=== PATIENT | male | born 1985 | race African-American/Black ===

== ENCOUNTER 2019-02-23 06:07 | Day surgery (SDC) | payer OTHER ==
[2019-02-23] VITALS (9 sets, daily range): BP systolic 91–121; BP diastolic 41–72
[~2019-02-23] VITALS: Ht 195.6 cm; Wt 102.1 kg
[~2019-02-23 06:07] MED LIST: ceFAZolin sod 1gm in D5W 55ml IVPB ONE; celeBREX 200mg Cap **SURGERY PATIENTS ONLY ORAL ONE; oxyCONTIN 20mg tab ORAL ONE
[2019-02-23] MEDS ORDERED: FINASTERIDE1 MG PO (07:37)
--- NOTE | 2019-02-23 07:48 | Pre-Procedure Note/Attestation ---
Pre-Procedure Note/Attestation Complete Prior to Procedure Planned Procedure: left Procedure Narrative: knee artnrscopic menisectomy Indications for Procedure Pre-Operative Diagnosis: left knee meniscus tear Attestation I attest that I discussed the nature of the procedure; its benefits; risks and complications; and alternatives (and the risks and benefits of such alternatives ), prior to the procedure, with the patient (or the patient's legal enrollment eligibility representative). I attest that, if there was a reasonable possibility of needing a blood transfusion, the patient (or the patient's legal enrollment eligibility representative) was given the [facility] standardized written summary, pursuant to the [place] Blood Safety Act ([place] Health and Safety Code # 1645, as amended). I attest that I re-evaluated the patient just prior to the surgery and that there has been no change in the patient's H&P, except as documented below: Ayden Judd MD Feb 23, 2019 07:48
--- NOTE | 2019-02-23 07:49 | Operative Note - PDOC ---
Operative Note Operative Note Pre-op Diagnosis: left knee meniscus tear Procedure: see op report Post-op Diagnosis: same as pre-op plus Operative Findings: consistent w/pre-op dx studies Anesthesia: MAC Specimen: none Complications: none Condition: stable Estimated Blood Loss: none Implant(s) used?: No Ayden Judd MD Feb 23, 2019 07:49
[2019-02-23] MEDS ORDERED: HYDROmorphone 1mg/ml Carpuject SUBQ PRN (08:00)
[2019-02-23] MEDS ORDERED: HYDROcodone/Acetamin 5/325 tab ORAL PRN (08:00)
[2019-02-23] MEDS ORDERED: D5 1/2NS 1,000 ML IV SCH (08:00)
[2019-02-23] MEDS ORDERED: Tylenol #3 tab (300mg/30mg) ORAL PRN (08:00)
[2019-02-23] MEDS ORDERED: Midazolam 2mg/2ml Inj ONE (08:27)
[2019-02-23] MEDS ORDERED: fentaNYL 100 mcg/2 mL IV ONE (08:27)
[2019-02-23] MEDS ORDERED: Lidocaine 1% MPF 10mg/ml 5ml ONE (08:28)
[2019-02-23] MEDS ORDERED: Ketorolac 30mg Inj ONE ×2 (08:28→08:53)
[2019-02-23] MEDS ORDERED: Propofol 200mg/20ml IV ONE (08:28)
[2019-02-23] MEDS ORDERED: ePHEDrine 50mg/ml Inj ONE (08:38)
[2019-02-23] MEDS ORDERED: Sodium Chloride 10ml vial INJ ONE (08:38)
[2019-02-23] MEDS ORDERED: Bupivacaine 0.25% Inj 30ml INJ ONE (08:53)
[2019-02-23] MEDS ORDERED: Kenalog-40 1ml Vial ONE (08:53)
[2019-02-23] MEDS ORDERED: Duramorph PF 5mg/10ml amp ONE (08:53)
[2019-02-23] MEDS ORDERED: Lidocaine 1% 10mg/ml/Epi 0.005mg/ml 30ml vial INJ ONE (08:54)
[2019-02-23] MEDS ORDERED: Duramorph PF 5mg/10ml amp IV ONE (09:31)
[2019-02-23] MEDS ORDERED: LR 1000ml 1,000 ML IVLG SCH (09:50)
--- NOTE | 2019-02-23 09:50 | Anethesia Preoperative Eval ---
Anesthesia Pre-op PMH/ROS General Date of Evaluation: Feb 23, 2019 Time of Evaluation: 08:59 Anesthesiologist: Brea ASA Score: ASA 2 Mallampati Score Class I : Soft palate, uvula, fauces, pillars visible Class II: Soft palate, uvula, fauces visible Class III: Soft palate, base of uvula visible Class IV: Only hard plate visible Mallampati Classification: Class II Surgeon: Dutch Diagnosis: R knee pain Surgical Procedure: R knee scope Anesthesia History: none Family History: no anesthesia problems Allergies: Coded Allergies: No Known Allergies (Unverified , 02/22/19) Medications: see eMAR Patient NPO?: Yes Past Medical History Cardiovascular: Denies: HTN, CAD, NC, valve dz, arrhythmia, other Pulmonary: Denies: asthma, COPD, REJI, other Gastrointestinal/Genitourinary: Reports: GERD - mild; Denies: CRI, ESRD, other Neurologic/Psychiatric: Denies: dementia, CVA, depression/anxiety, TIA, other Endocrine: Denies: DM, hypothyroidism, steroids, other HEENT: Denies: cataract (L), cataract (R), glaucoma, TYONEK (L), TYONEK (R), other Hematology/Immune: Denies: anemia, DVT, bleeding disorder, other Musculoskeletal/Integumentary: Denies: OA, RA, DJD, DDD, edema, other PMH Narrative: as above PSxH Narrative: R knee ACL repair Anesthesia Pre-op Phys. Exam Physician Exam Last Vital Signs Date Time Temp Pulse Resp B/P (MAP) Pulse Ox O2 Delivery O2 Flow Rate FiO2 02/23/19 07:34 97.2 60 20 121/62 100 Room Air Constitutional: NAD Neurologic: CN 2-12 intact Cardiovascular: RRR, no M/R/G Respiratory: CTA Gastrointestinal: S/NT/ND Airway Exam Mallampati Score: Class II MO: full Neck: flexible ROM: full Teeth: intact Dentures: no upper, no lower Anesthesia Pre-op A/P Labs see chart Studies Pre-op Studies: EKG - NSR Risk Assessment & Plan Assessment: ASA 2 Plan: GA with LMA Pre-Antibiotics Drug: Ancef 2gr. Given Within 1 Hr of Incision: Yes Time Given: 09:48 Jarod Guidry MD Feb 23, 2019 09:50
[2019-02-23] MEDS ORDERED: Ketorolac 30mg Inj IV PRN (10:00)
[2019-02-23] MEDS ORDERED: DiphenhydrAMINE 50mg/ml Inj IVP PRN (10:00)
[2019-02-23] MEDS ORDERED: Meperidine 50mg/ml Inj(FOR RIGORS ONLY) IV PRN (10:00)
[2019-02-23] MEDS ORDERED: NS Irrig 1000ml ONE (10:02)
[2019-02-23] MEDS ORDERED: LR 1000ml ONE (10:02)
--- NOTE | 2019-02-23 10:37 | Immediate Post-Op Evaluation ---
Immediate Post-Op Evalulation Immediate Post-Op Evalulation Procedure: R knee arthroscopy meniscectomy Date of Evaluation: Feb 23, 2019 Time of Evaluation: 10:36 IV Fluids: 700 Blood Products: none Estimated Blood Loss: mion Urinary Output: none Blood Pressure Systolic: 108 Blood Pressure Diastolic: 56 Pulse Rate: 72 Respiratory Rate: 20 O2 Sat by Pulse Oximetry: 99 Temperature (Fahrenheit): 97.6 Pain Score (1-10): 1 Nausea: No Vomiting: No Complications none Patient Status: awake, patent, none Hydration Status: adequate Jarod Guidry MD Feb 23, 2019 10:37
--- NOTE | 2019-02-23 13:09 | 48 Hour Post Anesthesia Eval ---
Post Anesthesia Evaluation Procedure: R knee arthroscopy meniscectomy Date of Evaluation: Feb 23, 2019 Time of Evaluation: 13:08 Blood Pressure Systolic: 116 0: 72 Pulse Rate: 68 Respiratory Rate: 20 Temperature (Fahrenheit): 97.6 O2 Sat by Pulse Oximetry: 98 Airway: patent Nausea: No Vomiting: No Pain Intensity: 2 Hydration Status: adequate Cardiopulmonary Status: stable Mental Status/LOC: patient returned to baseline Follow-up Care/Observations: n/a Post-Anesthesia Complications: none Follow-up care needed: ready to discharge Jarod Guidry MD Feb 23, 2019 13:09
--- NOTE | 2019-02-23 15:45 | Operative Note - Dictated ---
DATE OF OPERATION: 02/23/2019 PREOPERATIVE DIAGNOSES: 1. Status post right knee ACL reconstruction. 2. Right knee acute MCL sprain, PCL sprain with tear posterior horn lateral meniscus. POSTOPERATIVE DIAGNOSES: 1. Status post right knee ACL reconstruction. 2. Right knee acute MCL sprain, PCL sprain with tear posterior horn lateral meniscus. 3. Grade 2 chondral damage distal femoral condyle. PROCEDURES: 1. Right knee arthroscopy with partial lateral meniscectomy. 2. Synovectomy, medial lateral patellofemoral compartment. 3. Gentle chondroplasty of lateral femoral condyle. 4. Lacks intact ACL graft. SURGEON: Ayden Judd M.D. ANESTHESIA: MAC. INDICATION FOR PROCEDURE: The patient is a pleasant 32-year-old gentleman, who underwent ACL reconstruction years ago, was doing well until he is involved in accident. Subsequently, he had pain and the knee was diagnosed with a meniscal tear. The ACL graft appeared to be intact although was somewhat vertical. The patient failed conservative treatment and elected to undergo diagnostic arthroscopy and partial lateral meniscectomy. Risks, limitations, expectations, and complications of the procedure were discussed in detail. All questions were addressed. DESCRIPTION OF PROCEDURE: After informed consent was obtained, the patient was brought to the operating room. The patient was placed under general anesthesia. Right leg was prepped and draped in a sterile manner. Time-out was performed. Inferolateral stab incision was then made. Trocar was introduced into the knee joint. There was significant resistance having the trocar introduced into the anterior lateral portal. Once that was done, there was hypertrophic and a scar tissue and synovial tissue in the patellofemoral compartment. Medial compartment was entered. Medial working portal was established. Synovectomy and excision of fat pad was performed to better visualize medial compartment. Medial compartment was entered free from the meniscal chondral damage. Synovectomy was extended into intercondylar notch, this allowed better visualization in the previous ACL graft. The ACL graft was somewhat vertical and was somewhat lacks, which is not unusual for someone for vertical graft. There was significant scar tissue and hypertrophic fat pad along the lateral compartment. Partial synovectomy was performed. There was some grade 2 chondral damage in the distal femoral condyle. Gentle chondroplasty of the distal femoral condyle was performed. Once this was done with effort, we have entered the lateral compartment. There was a tear of the posterior horn of lateral meniscus. Partial meniscectomy posterior horn lateral meniscus was performed. Once that was done, the camera was repositioned in the patellofemoral compartment. Incision fat pad was completed. At this time, the instruments were removed. Portal sites were closed with 3-0 Monocryl sutures. Steri-Strips and a sterile dressing were applied. Ayden Judd M.D. DR: ANNIE JOB#: [id number] CC:
== END 2019-02-23 11:45 | disposition home or self-care (01) ==
LOC: SUR 06:07
DX: S83.411A Sprain of medial collateral ligament of right knee, initial encounter (principal); S83.281A Other tear of lateral meniscus, current injury, right knee, initial encounter; X58.XXXA Exposure to other specified factors, initial encounter; Y92.9 Unspecified place or not applicable; K21.9 Gastro-esophageal reflux disease without esophagitis
CPT/HCPCS: 29876; 29881; J0690; J1885; J2250; J2704; J3010; J3301; J3490; J7120; 94003; 94150